=== PATIENT | female | born 1995 | race Caucasian/White ===

== ENCOUNTER 2017-04-30 17:36 | Emergency (ER) | payer OTHER ==
[2017-04-30] MEDS ORDERED: ORPHENADRINE 30 MG/ML 2 ML VIAL IM STA (18:33)
[2017-04-30] MEDS ORDERED: KETOROLAC 30 MG/ML 1 ML VIAL IM STA (18:33)
--- NOTE | 2017-04-30 18:39 | ED ---
Back Pain HPI - General Chief Complaint: Back Pain/Injury Stated Complaint: back pain Time Seen by Provider: 04/30/17 17:54 Source: patient, RN notes reviewed, old records reviewed Limitations: no limitations - History of Present Illness Initial Comments: This patient is a 21-year-old female with a history of chronic back pain states that she's been having worsening pain over the past two days. She would like that she's currently living in a drug rehab facility and presents with a piece of paper stating that she should not receive narcotic and less it is severely noted by the physician. Patient states that she has had no fever or chills. She denies any urinary symptoms.She's nice any chance of . She states her last menstrual cycle was last week. She reports that she always has some numbness and tingling down her legs. She reports she said no urinary or bowel incontinence. Patient states she's on gabapentin, Tylenol and naproxen. - Related Data Previous Rx's Medication Instructions Recorded Cyclobenzaprine [Flexeril] 10 mg PO TID #6 tab 04/30/17 Allergies Allergy/AdvReac Type Severity Reaction Status Date / Time No Known Allergies Allergy Verified 04/30/17 17:41 Review of Systems ROS Statement: Those systems with pertinent positive or pertinent negative responses have been documented in the HPI. ROS Other: All systems not noted in ROS Statement are negative. Past Medical History Additional Past Medical History / Comment(s): chronic back pain, borderline personality disorder History of Any Multi-Drug Resistant Organisms: None Reported Past Surgical History: Adenoidectomy, Orthopedic Surgery, Tonsillectomy Additional Past Surgical History / Comment(s): right hip surgery Past Psychological History: Anxiety, Bipolar, Depression, PTSD, Schizophrenia Smoking Status: Current every day smoker Past Alcohol Use History: None Reported Past Drug Use History: None Reported General Exam - General Exam Comments Initial Comments: Morbidly obese 21-year-old female. No distress. Limitations: no limitations General appearance: alert, in no apparent distress Head exam: Present: atraumatic, normocephalic, normal inspection Eye exam: Present: normal appearance, PERRL, EOMI. Absent: scleral icterus, conjunctival injection, periorbital swelling ENT exam: Present: normal exam, mucous membranes moist Neck exam: Present: normal inspection Respiratory exam: Present: normal lung sounds bilaterally. Absent: respiratory distress, wheezes, rales, rhonchi, stridor Cardiovascular Exam: Present: regular rate, normal rhythm, normal heart sounds. Absent: systolic murmur, diastolic murmur, rubs, gallop, clicks GI/Abdominal exam: Present: soft, normal bowel sounds. Absent: distended, tenderness, guarding, rebound, rigid Back exam: Present: normal inspection, paraspinal tenderness (lumbar bilateral paraspinal tenderness.) Neurological exam: Present: alert, oriented X3, CN II-XII intact Psychiatric exam: Present: normal affect, normal mood Course Vital Signs 04/30/17 04/30/17 17:39 18:56 Temperature 97.4 F L 98.2 F Pulse Rate 97 71 Respiratory 18 16 Rate Blood Pressure 140/63 148/77 O2 Sat by Pulse 98 98 Oximetry Medical Decision Making - Medical Decision Making 21-year-old female with a history of drug abuse disorder presents with worsening chronic back pain.Patient reports it's worse with movement. She denies any urinary symptoms. She denies any abdominal pain. No falls or trauma. She's able to ambulate without difficulty. She's on gabapentin Tylenol and Motrin for her pain. And this time I discussed no need for further imaging due to lack of Trumatic injury. Discussed I will give a patient I am Toradol Norflex. She will receive no narcotics.Patient agrees to this. I will discharge the patient with a short prescription for Flexeril. All questions were answered and return parameters were discussed. Disposition Clinical Impression: Acute exacerbation of chronic low back pain Disposition: HOME SELF-CARE Condition: Good Instructions: Chronic Back Pain (ED) Additional Instructions: Patient advised to follow-up with primary care physician. Return to emergency department if any alarming signs or symptoms occur. Patient advised to apply ice and warm compresses to the back. Prescriptions: Cyclobenzaprine [Flexeril] 10 mg PO TID #6 tab Referrals: Jeanne Patterson MD [Primary Care Provider] - 1-2 days Time of Disposition: 18:38
[2017-04-30 18:57] VITALS: BP 148/77; PULSE 71; RESP 16; TEMP 98.2
== END 2017-04-30 18:56 | disposition home or self-care (01) ==
LOC: EC 17:36
DX: G89.29 Other chronic pain (principal); M54.5 Low back pain; F17.200 Nicotine dependence, unspecified, uncomplicated; Z98.890 Other specified postprocedural states
CPT/HCPCS: 99283; 96372 ×2; J2360; J1885

== ENCOUNTER → 2017-05-22 | Outpatient (CLI) | payer OTHER | LOC: RADMRIMAIN 13:28 | PROVIDERS: ATTEND Nurse Practitioner Family | DX: Z53.9 Procedure and treatment not carried out, unspecified reason (principal) ==

== ENCOUNTER → 2017-06-15 | Outpatient (CLI) | payer OTHER ==
--- NOTE | 2017-06-15 15:15 | XR ---
EXAMINATION TYPE: XR chest 2V DATE OF EXAM: 06/15/2017 COMPARISON: NONE HISTORY: Cough for 3 weeks TECHNIQUE: Frontal and lateral views of the chest are obtained. FINDINGS: Copious soft tissues partially obscure the lower lungs. There is no focal air space opacity , pleural effusion, or pneumothorax seen. The cardiac silhouette size is within normal limits. The osseous structures are intact. Minimal multilevel degenerative changes of the thoracic spine are not ed. IMPRESSION: No acute cardiopulmonary process.
== END | disposition home or self-care (01) ==
LOC: RADXRMAIN 14:55
PROVIDERS: ATTEND Family Medicine
DX: R05 Cough (principal); Z72.0 Tobacco use
CPT/HCPCS: 71046

== ENCOUNTER 2017-06-28 22:16 | Emergency (ER) | payer OTHER ==
[2017-06-28 22:26] VITALS: RESP 18
--- NOTE | 2017-06-28 23:08 | ED ---
General Adult HPI - General Chief complaint: Psychiatric Symptoms Stated complaint: Mental health Time Seen by Provider: 06/28/17 22:29 Source: patient, RN notes reviewed Mode of arrival: ambulatory Limitations: no limitations - History of Present Illness Initial comments: 21-year-old female who presents emergency room today with a chief complaint of increased also herself. She states she is not suicidal has no thoughts of committing suicide but does have thoughts of hurting herself by cutting. She states most recently did this 2 weeks ago. She does admit that she's been on medications. She states no recent changes has been taking her meds as prescribed. Does see a therapist most recently just 2 weeks ago. Denies any homicidal thoughts or plans. Does admit to auditory voices. She states that her. She denies any other complaints. Patient denies any recent fever, chills, shortness of breath, chest pain, back pain, abdominal pain, nausea or vomiting, numbness or tingling, headaches or visual changes, or any other complaints. - Related Data Home Medications Medication Instructions Recorded Confirmed ARIPiprazole [Abilify Maintena] 400 mg IM WE 06/28/17 06/28/17 Acetaminophen Tab [Tylenol Tab] 1,000 mg PO Q6HR PRN 06/28/17 06/28/17 Ergocalciferol (Vitamin D2) 50,000 unit PO ISAACS 06/28/17 06/28/17 [Vitamin D2] Gabapentin [Neurontin] 300 mg PO TID 06/28/17 06/28/17 Levothyroxine Sodium [Synthroid] 25 mcg PO DAILY 06/28/17 06/28/17 Lisinopril [Prinivil] 5 mg PO DAILY 06/28/17 06/28/17 Loratadine [Claritin] 10 mg PO DAILY 06/28/17 06/28/17 Norethindrone-E.estradiol-Iron 1 tab PO DAILY 06/28/17 06/28/17 [Microgestin 24 Fe 1 mg-20 Mcg] Sertraline [Zoloft] 100 mg PO DAILY 06/28/17 06/28/17 lamoTRIgine [LaMICtal] 100 mg PO DAILY 06/28/17 06/28/17 traZODone HCL 300 mg PO HS 06/28/17 06/28/17 Allergies Allergy/AdvReac Type Severity Reaction Status Date / Time No Known Allergies Allergy Verified 06/28/17 22:51 Review of Systems ROS Statement: Those systems with pertinent positive or pertinent negative responses have been documented in the HPI. ROS Other: All systems not noted in ROS Statement are negative. Past Medical History Past Medical History: No Reported History Additional Past Medical History / Comment(s): chronic back pain, borderline personality disorder History of Any Multi-Drug Resistant Organisms: None Reported Past Surgical History: Adenoidectomy, Orthopedic Surgery, Tonsillectomy Additional Past Surgical History / Comment(s): right hip surgery Past Psychological History: Anxiety, Bipolar, Depression, PTSD, Schizophrenia Smoking Status: Current every day smoker Past Alcohol Use History: None Reported Past Drug Use History: None Reported General Exam - General Exam Comments Initial Comments: General: The patient is awake and alert, in no distress, and does not appear acutely ill. Eye: Pupils are equal, round and reactive to light, extra-ocular movements are intact. No nystagmus. There is normal conjunctiva bilaterally. No signs of icterus. Ears, nose, mouth and throat: There are moist mucous membranes and no oral lesions. Neck: The neck is supple, there is no tenderness or JVD. Cardiovascular: There is a regular rate and rhythm. No murmur, rub or gallop is appreciated. Respiratory: Lungs are clear to auscultation, respirations are non-labored, breath sounds are equal. No wheezes, stridor, rales, or rhonchi. Musculoskeletal: Normal ROM, no tenderness. Strength 5/5. Sensation intact. Pulses equal bilaterally 2+. Neurological: A&O x 3. CN II-XII intact, There are no obvious motor or sensory deficits. Coordination appears grossly intact. Speech is normal. Skin: Skin is warm and dry and no rashes or lesions are noted. Psychiatric: Cooperative, appropriate mood & affect, normal judgment. Limitations: no limitations Course Vital Signs 06/28/17 22:22 Temperature 97.1 F L Pulse Rate 103 H Respiratory 18 Rate Blood Pressure 144/67 O2 Sat by Pulse 96 Oximetry Medical Decision Making - Medical Decision Making Patient has been seen here the emergency room by [facility]. They state that the patient may be discharged. Patient has thoughts of cutting no thoughts of suicide. She contracts for safety. She feels comfortable being discharged home. She states she does have daily follow-up with her counselor's will call her in the morning. Patient advised she may return to emergency room at anytime if any symptoms increase worsen. She states understanding and is in agreement. - Lab Data Lab Results 06/28/17 06/28/17 Range/Units 22:42 22:43 Urine HCG, Qual Not Detected (Not Detectd) Urine Opiates Screen Not Detected (NotDetected) Ur Oxycodone Screen Not Detected (NotDetected) Urine Methadone Screen Not Detected (NotDetected) Ur Propoxyphene Screen Not Detected (NotDetected) Ur Barbiturates Screen Not Detected (NotDetected) U Tricyclic Antidepress Not Detected (NotDetected) Ur Phencyclidine Scrn Not Detected (NotDetected) Ur Amphetamines Screen Not Detected (NotDetected) U Methamphetamines Scrn Not Detected (NotDetected) U Benzodiazepines Scrn Not Detected (NotDetected) Urine Cocaine Screen Not Detected (NotDetected) U Marijuana (THC) Screen Not Detected (NotDetected) Disposition Clinical Impression: Deliberate self-cutting Disposition: HOME SELF-CARE Condition: Stable Instructions: Depression (ED) Additional Instructions: Please follow-up with your therapist tomorrow. Please return here to the emergency room if any symptoms increase or worsen or for any other concerns. Referrals: Jeanne Patterson MD [Primary Care Provider] - 1-2 days Time of Disposition: 00:26
[2017-06-28 23:13] LABS: Amphetamine Screen,Urine Not Detected (NotDetected); Barbiturate Screen,Urine Not Detected (NotDetected); Benzodiazepines Screen,Urine Not Detected (NotDetected); Cocaine Screen,Urine Not Detected (NotDetected); Methadone Screen, Urine Not Detected (NotDetected); Opiate Screen,Urine Not Detected (NotDetected); Oxycodone Screen, Urine Not Detected (NotDetected); Phencyclidine Screen,Urine Not Detected (NotDetected); Tricyclic Antidepressant,Urine Not Detected (NotDetected); Urn Cannabinoid Scrn Not Detected (NotDetected)
[2017-06-29 01:00] VITALS: BP 145/68; PULSE 91; TEMP 98.2
== END 2017-06-29 01:00 | disposition home or self-care (01) ==
LOC: EC 22:16
DX: R45.851 Suicidal ideations (principal); F60.3 Borderline personality disorder; F31.9 Bipolar disorder, unspecified; F41.9 Anxiety disorder, unspecified; F20.9 Schizophrenia, unspecified; F43.10 Post-traumatic stress disorder, unspecified; F17.200 Nicotine dependence, unspecified, uncomplicated; Z79.3 Long term (current) use of hormonal contraceptives; Z79.899 Other long term (current) drug therapy
CPT/HCPCS: 80306; 81025; 82075; 99284

== ENCOUNTER → 2017-06-29 | Outpatient (CLI) | payer OTHER ==
[2017-06-29 12:20] LABS: T4, Free (Free Thyroxine) 0.9 ng/dL (0.78-2.19)
[2017-06-29 17:48] LABS: Hemoglobin A1C 5.1 % (4.0-6.0)
== END | disposition home or self-care (01) ==
LOC: LABWHC1 10:58
PROVIDERS: ATTEND Psychiatry & Neurology Psychiatry
DX: Z51.81 Encounter for therapeutic drug level monitoring (principal); Z79.899 Other long term (current) drug therapy
CPT/HCPCS: 36415; 83036; 84439; 84443